=== PATIENT | male | born 1935 | race Caucasian/White ===

== ENCOUNTER 2019-05-05 11:24 | Day surgery (SDC) | payer MEDICARE, BC ==
[2019-05-02 13:45] VITALS: BMI 23.0
[~2019-05-05 11:24] MED LIST: LIDOCAINE 1% 20 ML VIAL (10MG/ML) FOR IV START INTRADERMA PRN
[2019-05-05 11:46] VITALS: RESP 16; TEMP 98
[2019-05-05] MEDS: LACTATED RINGERS 1,000 ML IV SCH ×2 (11:47→13:07)
[2019-05-05] MEDS ORDERED: fentaNYL (PF) 50 MCG/ML 2 ML AMP ONE (13:07)
[2019-05-05] MEDS ORDERED: PROPOFOL 10 MG/ML 20 ML VIAL IV ONE (13:07)
[2019-05-05] MEDS ORDERED: LIDOCAINE 1% INJ 10MG/ML (20 ML MDV) ONE (13:07)
[2019-05-05] MEDS ORDERED: MIDAZOLAM 2 MG/2 ML VIAL ONE (13:07)
--- NOTE | 2019-05-05 13:21 | P.PCN ---
Date of Procedure: 05/05/19 Procedure(s) Performed: BRIEF HISTORY: Patient is a 83-year-old, pleasant, white male, scheduled for an upper endoscopy for evaluation of intermittent dysphagia to solids for the last 1 year duration. He has these episodes once a month.. PROCEDURE PERFORMED: Esophagogastroduodenoscopy with biopsy and dilation. PREOPERATIVE DIAGNOSIS: Intermittent dysphagia to solids. IV sedation per anesthesia. PROCEDURE: After informed consent was obtained, the patient was brought into the endoscopy unit. IV sedation was administered by Anesthesia under continuous monitoring. Initially the Olympus GIF-140 video endoscope was inserted into the mouth. Esophagus intubated without any difficulty. It was gradually advanced into the stomach and duodenum and carefully examined. The bulb and the second part of the duodenum appeared normal. The scope at this time was withdrawn to the stomach, adequately insufflated with air, and upon careful examination, mucosa of the antrum, body, cardia and the fundus appeared normal. There were multiple small gastric polyps in the proximal body the stomach which were bi opsied. The scope was then withdrawn into the esophagus. Small hiatal hernia noted. The GE junction was located at 39 cm from the incisors. There was a distal esophageal stricture identified which was dilated using 15 and 16.5 mm TTS balloon for total of 60 seconds. The rest of the esophagus appeared normal. There were no erosions or ulcerations seen and the patient tolerated the procedure well. IMPRESSION: 1. Distal esophageal Schatzki's ring status post balloon dilation using 15-16.5 mm TTS balloon as described above. 2. Small hiatal hernia 3. Gastric polyps. RECOMMENDATIONS: The findings of this examination were discussed with the patient as well as a family. He was advised to continue with Prilosec 20 mg daily and follow antireflux measures. He'll remain on a clear liquid diet for lunch today. If he has recurrent symptoms he was advised to follow up in office.
[2019-05-05 13:43] VITALS: BP 124/74; PULSE 75
== END 2019-05-05 14:10 | disposition home or self-care (01) ==
LOC: ORWHC2ENDO 11:24
PROVIDERS: ATTEND Internal Medicine Gastroenterology
DX: K22.2 Esophageal obstruction (principal); K29.50 Unspecified chronic gastritis without bleeding; K31.7 Polyp of stomach and duodenum; K44.9 Diaphragmatic hernia without obstruction or gangrene; K21.9 Gastro-esophageal reflux disease without esophagitis; I10 Essential (primary) hypertension; E78.5 Hyperlipidemia, unspecified; C44.90 Unspecified malignant neoplasm of skin, unspecified; B37.89 Other sites of candidiasis; Z79.82 Long term (current) use of aspirin; Z79.899 Other long term (current) drug therapy
CPT/HCPCS: 88305; 43239; 43249; J2250; J2001; J3010; J2704; C1726

== ENCOUNTER → 2023-04-21 | Outpatient (CLI) | payer BC, MEDICARE, OTHER ==
--- NOTE | 2023-04-21 13:32 | CT ---
EXAMINATION TYPE: CT chest wo con DATE OF EXAM: 04/21/2023 COMPARISON: None HISTORY: Thoracic aortic aneurysm without rupture. CT DLP: 295.50 mGycm. Automated Exposure Control for Dose Reduction was Utilized. TECHNIQUE: CT scan of the thorax is performed without IV contrast. FINDINGS: LUNGS: There is evidence of centrilobular emphysema. Area of consolidation with air bronchograms may represent a component of traction bronchiectasis. Scattered areas of subsegmental consolidation most likely in the basis of atelectasis. No pleural effusion or pneumothorax.. There is a 3 mm nodule left upper lobe axial image 24 too small to characterize. MEDIASTINUM: Lack of IV contrast is noted to limit evaluation for mediastinal and especially hilar ad enopathy. There are no definitive greater than 1 cm hilar or mediastinal lymph nodes. No cardiomega ly or pericardial effusion is seen. Atherosclerotic changes of aorta with normal caliber of the ascen ding aorta. The proximal descending aorta demonstrates a focal area of saccular protuberance with ecc entric calcification measuring 2.6 cm. Calcified lymph nodes are seen in the hilum. Small pericardial effusion. OTHER: Hypertrophic and degenerative change of the spine. Granuloma are noted of the spleen.. There i s a right renal lesion measuring 10 Hounsfield units compatible with simple cyst and measuring approx imately 2.5 cm. IMPRESSION: 1. 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 There is narrowing of the upper pole bronchus which could be correlated with bronchoscopy or v irtual bronchoscopy as clinically warranted. 2. Subcentimeter bilateral pulmonary nodules too small to characterize. 3. There is a focal saccular protuberance of the level of the aortic arch\proximal descending thoraci c aorta measuring a maximal dimension 3.4 cm compatible with an area of ectasia or mild aneurysmal di lation.
== END | disposition home or self-care (01) ==
LOC: RADCTMAIN 12:29
DX: I71.20 Thoracic aortic aneurysm, without rupture, unspecified (principal); J43.2 Centrilobular emphysema; R91.8 Other nonspecific abnormal finding of lung field
CPT/HCPCS: 71250